=== PATIENT | female | born 1975 | race Caucasian/White ===

== ENCOUNTER 2017-05-11 10:53 | Emergency (ER) | payer BC ==
--- NOTE | 2017-05-11 13:28 | DIAGNOSTIC IMAGING REPORT ---
PROCEDURE: US VENOUS - BILATERAL EXT INDICATION: SWELLING, history of rhabdomyosarcoma TECHNIQUE: Duplex sonography of the deep venous system in both lower extremities was performed. Compression and augmentation techniques were used. COMPARISON: None. FINDINGS: Each interrogated segment of deep vein from the common femoral vein into the calf veins demonstrates normal compressibility, augmentation and/or color Doppler flow without filling defect. No soft-tissue mass or cyst. Moderate to significant bilateral lower extremity edema extending proximal to the mid thigh region. IMPRESSION: 1. No deep venous thrombosis in either lower extremity. 2. Moderate to severe bilateral lower extremity edema extending to the mid thigh region. This is consistent with cardiac failure/volume overload (elevated BNP at this visit).
--- NOTE | 2017-05-11 14:33 | DIAGNOSTIC IMAGING REPORT ---
PROCEDURE: XR CHEST 1 VIEW INDICATION: SHORTNESS OF BREATH TECHNIQUE: Single view chest. 1337 hours COMPARISON: 05/11/2015 FINDINGS: Right IJ Mediport in place. Very low lung volumes. The heart is obscured, but probably mildly enlarged. Central vasculature is indistinct. Bilateral alveolar opacities, left more diffuse than right. The right diaphragm is obscured there is probably right base atelectasis. Moderate to large right, and probable large left effusion. No pneumothorax. No acute fractures visible. IMPRESSION: 1. Findings of CHF and pulmonary edema. 2. Findings are accentuated by low lung volumes. 3. Right IJ Mediport.
--- NOTE | 2017-05-11 19:47 | DIAGNOSTIC IMAGING REPORT ---
PROCEDURE: CT THORAX ABD PELVIS W/CONT INDICATION: Left chest rhabdomyosarcoma. Evolving lower extremity ecchymosis. TECHNIQUE: 125 ml of Isovue 300 injected intravenously and axial images were obtained of the entire thorax, abdomen, pelvis, and lower extremities (to the level of the proximal legs) with sagittal and coronal reformations. COMPARISON: Comparison is made to chest x-ray and bilateral lower extremity venous study earlier today (05/11/1970). Comparison is also made to CT thorax from [facility] [place] on 05/12/2015. FINDINGS: THORAX: There is a large 14.5 x 8.5 x 7.5 cm mass of the left upper anterior chest wall which extends into the ventral mediastinum and is associated with destruction of the left anterior first rib and manubrium. There is a large right pleural effusion with moderate left pleural effusion. There are multiple metastatic lesions of the lungs (largest right 2.6 cm, largest left 1.5 cm). There is a mild cardiomegaly with pericardial effusion. In addition, there are a large filling defects in the atrium (right atrium 3.6 cm, left atrial 5.5 cm), with possible masses in the ventricles. There are multiple osseous metastatic lesions. clear. ABDOMEN: There is severe generalized anasarca. Moderate distention of the gallbladder with layering hyperdense material. There is heterogeneous appearance of the liver. Spleen (10.0 cm), pancreas, kidneys, and aorta are normal. There are multiple osseous metastatic lesions of the lumbar spine. PELVIS: There is severe generalized anasarca. Small amount of ascites. Multiple osseous metastatic lesions. RIGHT LOWER EXTREMITY: There is severe deep and superficial edema with fluid throughout the deep fascial planes and intramuscular effusions. LEFT LOWER EXTREMITY: There is severe deep and superficial edema with fluid throughout the deep fascial planes and intramuscular effusions. IMPRESSION: 1. There is a large 14.5 x 8.5 x 7.5 cm left upper chest wall mass extending into the mediastinum consistent with known primary neoplasm. 2. Large right and moderate left pleural effusions. 3. Multiple pulmonary metastatic nodules. 4. Mild cardiomegaly with pericardial effusion. 5. Large biatrial cardiac masses (right atrium 3.6 cm, left atrium 5.5 cm). In addition, findings suggest possible masses within the ventricles. 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 6. Distention of the gallbladder filled with biliary sludge. 7. Marked abnormal appearance of the liver consistent with intrinsic liver disease, passive congestion, although metastatic disease might also be considered. 8. Severe generalized anasarca with small amount of ascites. 9. Multiple osseous metastatic lesions of the thorax, abdomen, and pelvis. 10. Severe bilateral lower extremity deep and superficial edema with intramuscular effusions. 11. Findings discussed with Dr. Amado Plasencia. All CT scans at this facility use dose modulation, iterative reconstruction, and/or weight-based dosing when appropriate to reduce radiation dose to as low as reasonably achievable.
--- NOTE | 2017-05-11 23:37 | ED ORDER SUMMARY ---
..... Patient: NICOLA KELLER OrderSheet [facility] VisitID: [id number] [place] [address] 41y, F Registration Date/Time: 05/11/2017 ORDER SHEET Weight: 70.3 kg (stated) Allergies: Compazine GENERAL ORDERS: US Venous Bilat (Lower extremity) Urgent (11:32 05/11/2017 Melanie Reed) (Ack 11:41 OSnell) (12:43 KKnebel R.N.) CBC w Diff Urgent (11:32 05/11/2017 Melanie Reed) (Ack 11:41 OSnell) (12:03 KKnebel R.N.) CMP Urgent (11:05/11/2017 Melanie Reed) (Ack 11:41 OSnell) (12:03 KKnebel R.N.) UA-Culture if indicated Urgent (11:32 05/11/2017 Melanie Reed) (Ack 11:41 OSnell) (12:03 KKnebel R.N.) BNP Urgent (11:32 05/11/2017 Melanie Reed) (Ack 11:41 OSnell) (12:03 KKnebel R.N.) D-Dimer Urgent (11:32 05/11/2017 Melanie Reed) (Ack 11:41 OSnell) (12:03 KKnebel R.N.) Chest 1V Urgent (13:28 05/11/2017 Melanie Reed) (Ack 13:30 OSnell) (14:16 KKnebel R.N.) CT Lower Extremity With Contrast - Left Urgent (18:19 05/11/2017 Melanie Reed) (Ack 18:21 OSnell) (19:38 RFay) CT Thorax/Abd/Pelvis w Cont (No) (34/1.2) Urgent (18:24 05/11/2017 Melanie Reed) (Ack 18:29 OSnell) (19:38 RFay) CT Lower Extremity With Contrast - Right Urgent (18:27 05/11/2017 Melanie Reed) (Ack 18:29 OSnell) (19:38 RFay) Blood Culture (No) (N/A) Urgent (23:58 05/11/2017 Ariadna YANCEY) (Ack 0:09 AMcQuoid ER Tech1) (0:26 HSoule) MEDICATION ORDERS: - (Albumin 25 grams IV x 1 now) (13:20 05/11/2017 Melanie Reed) (14:05 KKnebel R.N.) IV FLUIDS: IV Saline Lock (11:32 05/11/2017 Melanie Reed) (12:03 KKnebel R.N.) Lasix IV 40 mg (Give 30 minutes after Albumin is infused.) (13:20 05/11/2017 Melanie Reed) (Ack 14:16 KKnebel R.N.) (15:35 KKnebel R.N.) Morphine IV 4 mg (HIGH ALERT MEDICATION, NOW) (13:20 05/11/2017 Melanie Reed) (13:25 DAYANAnelima R.N.) Morphine IV 4 mg (HIGH ALERT MEDICATION, NOW) (17:34 05/11/2017 Melanie Reed) (Cancelled: Physician Order17:48 Melanie Reed) Dilaudid IV 1 mg (HIGH ALERT MEDICATION, NOW) (17:47 05/11/2017 Melanie Reed) (18:20 KKnebel R.N.) Zofran IV 4 mg (NOW) (18:36 05/11/2017 Melanie Reed) (18:40 KWilliams R.N.) Vancomycin IV 1.5 gm/500 mL (NOW) (23:58 05/11/2017 Ariadna YANCEY) (Ack 0:01 HSoule) (0:24 HSoule) Dilaudid IV 1 mg (HIGH ALERT MEDICATION, NOW) (00:28 05/12/2017 Ariadna YANCEY) (0:32 HSoule) ORDER SHEET NOTES: [Electronically signed by Lurdes Arreola (00:43 05/12/2017)] [Electronically signed by Natan Johnson MD (22:23 05/14/2017)] [Electronically locked/signed by Lurdes Arreola (00:43 05/12/2017)]
--- NOTE | 2017-05-11 23:37 | ED ORDER SUMMARY ---
..... Patient: NICOLA KELLER OrderSheet [facility] VisitID: [id number] [place] [address] 41y, F Registration Date/Time: 05/11/2017 ORDER SHEET Weight: 70.3 kg (stated) Allergies: Compazine GENERAL ORDERS: US Venous Bilat (Lower extremity) Urgent (11:32 05/11/2017 Melanie Reed) (Ack 11:41 OSnell) (12:43 KKnebel R.N.) CBC w Diff Urgent (11:32 05/11/2017 Melanie Reed) (Ack 11:41 OSnell) (12:03 KKnebel R.N.) CMP Urgent (11:05/11/2017 Melanie Reed) (Ack 11:41 OSnell) (12:03 KKnebel R.N.) UA-Culture if indicated Urgent (11:32 05/11/2017 Melanie Reed) (Ack 11:41 OSnell) (12:03 KKnebel R.N.) BNP Urgent (11:32 05/11/2017 Melanie Reed) (Ack 11:41 OSnell) (12:03 KKnebel R.N.) D-Dimer Urgent (11:32 05/11/2017 Melanie Reed) (Ack 11:41 OSnell) (12:03 KKnebel R.N.) Chest 1V Urgent (13:28 05/11/2017 Melanie Reed) (Ack 13:30 OSnell) (14:16 KKnebel R.N.) CT Lower Extremity With Contrast - Left Urgent (18:19 05/11/2017 Melanie Reed) (Ack 18:21 OSnell) (19:38 RFay) CT Thorax/Abd/Pelvis w Cont (No) (34/1.2) Urgent (18:24 05/11/2017 Melanie Reed) (Ack 18:29 OSnell) (19:38 RFay) CT Lower Extremity With Contrast - Right Urgent (18:27 05/11/2017 Melanie Reed) (Ack 18:29 OSnell) (19:38 RFay) Blood Culture (No) (N/A) Urgent (23:58 05/11/2017 Ariadna YANCEY) (Ack 0:09 AMcQuoid ER Tech1) (0:26 HSoule) MEDICATION ORDERS: - (Albumin 25 grams IV x 1 now) (13:20 05/11/2017 Melanie Reed) (14:05 KKnebel R.N.) IV FLUIDS: IV Saline Lock (11:32 05/11/2017 Melanie Reed) (12:03 KKnebel R.N.) Lasix IV 40 mg (Give 30 minutes after Albumin is infused.) (13:20 05/11/2017 Melanie Reed) (Ack 14:16 KKnebel R.N.) (15:35 KKnebel R.N.) Morphine IV 4 mg (HIGH ALERT MEDICATION, NOW) (13:20 05/11/2017 Melanie Reed) (13:25 DAYANAnelima R.N.) Morphine IV 4 mg (HIGH ALERT MEDICATION, NOW) (17:34 05/11/2017 Melanie Reed) (Cancelled: Physician Order17:48 Melanie Reed) Dilaudid IV 1 mg (HIGH ALERT MEDICATION, NOW) (17:47 05/11/2017 Melanie Reed) (18:20 KKnebel R.N.) Zofran IV 4 mg (NOW) (18:36 05/11/2017 Melanie Reed) (18:40 KWilliams R.N.) Vancomycin IV 1.5 gm/500 mL (NOW) (23:58 05/11/2017 Ariadna YANCEY) (Ack 0:01 HSoule) (0:24 HSoule) Dilaudid IV 1 mg (HIGH ALERT MEDICATION, NOW) (00:28 05/12/2017 Ariadna YANCEY) (0:32 HSoule) ORDER SHEET NOTES: [Electronically signed by Lurdes Arreola (00:43 05/12/2017)] [Electronically signed by Natan Johnson MD (22:23 05/14/2017)] [Electronically locked/signed by Lurdes Arreola (00:43 05/12/2017)]
--- NOTE | 2017-05-11 23:37 | ED NURSING NOTES ---
Clinical Report - Nurses [facility] [address] [place] [address] 05/11/2017 10:54 Patient: NICOLA KELLER TRIAGE Triage time 11:May 11 2017. Acuity: LEVEL 3. Chief Complaint: LEFT LOWER EXTREMITY PAIN, SWELLING and REDNESS. Alert. No acute distress. (pain). GILBERTO COMA SCORE: Gilberto Coma Scale: 15- eyes open spontaneously (4); best verbal response- oriented x 4 (5); best motor response- obeys commands (6). --11:13 Nayeli Sandoval R.N. 11:04 05/11/17. BP: 95/67. HR: 103. RR: 20. O2 saturation: 100%. Temp: 97.9 F (axillary). Pain level now: 08/05. --11:13 Nayeli Sandoval R.N. Weight: 70.3 kg stated. Height/Length: 64 inches Per Patient. BMI: 26.6. --11:03 Nayeli Sandoval R.N. Medications Levothyroxine Sodium Oral 224 mcg, daily. --11:06 Nayeli Sandoval R.N. Morphine Sulfate ER Beads Oral (Capsule Extended Release 24 Hour 45 mg) 20mg , prn. --11:06 Nayeli Sandoval R.N. OxyCODONE HCl Oral 15mg, 4x a day. --11:07 Nayeli Sandoval R.N. Lovenox Subcutaneous (Solution 80 mg/0.8mL), daily. --11:07 Nayeli Sandoval R.N. Allergies Compazine. --11:07 Nayeli Sandoval R.N. History Arrived by private vehicle. Historian: patient. Accompanied by family. No injury occurred. This occurred today. ( pt states that she had a blod clot that "popped" this morning). She has had swelling, redness and trouble walking. Treatment ASSOCIATE MERCHANT: None. PAST MEDICAL HX: Tetanus status: up-to-date. Immunizations: up-to-date. Last normal menstrual period now. SOCIAL HX: Never smoker. Occasional alcohol use. No drug use. No infectious disease exposure. SELF HARM ASSESSMENT: A self harm assessment was performed. The patient answered "no" to the question "Do you have thoughts of harming or killing yourself?" and "Have you recently had thoughts about harming or killing others?". NUTRITIONAL RISK ASSESSMENT: The nutritional risk assessment revealed no deficiencies. FUNCTIONAL ASSESSMENT: Functional assessment: no impairments noted. LEARNING NEEDS ASSESSMENT: The learning needs assessment revealed no barriers. ABUSE ASSESSMENT: Abuse assessment: The patient was asked "Do you feel safe in your home?". FALL RISK ASSESSMENT: Fall risk assessment completed. Risk factors identified include severe pain and patient impairment of mobility. Fall interventions initiated. Patient placed on stretcher. Side rails up x2. Brakes on Bed in low position. Patient identified as a fall risk. Family at bedside. Call light in reach of patient. Instructed not to get up without assistance. SKIN INTEGRITY ASSESSMENT: Skin integrity risk assessment completed. No skin integrity risk identified. --11:13 Nayeli Sandoval R.N. PROBLEMS: Thyroid Disease. Rhabdomyocarcoma. --11:09 Nayeli Sandoval R.N. ADDITIONAL SURGERIES: Appendectomy. . Thyroid Surgery. --11:09 Nayeli Sandoval R.N. Interventions ID band on patient. To room. --11:13 Nayeli Sandoval R.N. PHYSICAL ASSESSMENT To room via wheelchair. GENERAL / NEURO / PSYCH: Oriented X 4. Appears in pain. CVS: Capillary refill is greater than 2 seconds. EXTREMITIES: Bilateral 4+ pitting edema of the lower extremities involving both feet, both ankles and both lower legs. Left thigh: tenderness, swelling, erythema and ecchymosis. SKIN: Skin intact. Skin is cool. --11:15 Nayeli Sandoval R.N. NURSING PROGRESS NOTES Patient gowned. Patient identifiers checked. Call light placed in reach. Side rails up x 2. Bed placed in lowest position. Brakes of bed on. --11:15 Nayeli Sandoval R.N. 11:45 05/11/2017 Site #1 started via IV in the right antecubital space with an 20g angiocath, with aseptic technique and good blood return; one attempt. Blood drawn: rainbow set. Labeled in the presence of the patient and sent to the lab. Saline lock flushed with 10 mL saline. --12:01 Nayeli Sandoval R.N. Patient ID band checked for patient name and birthdate. Instructions provided to collect clean catch urine and patient verbalized understanding. Clean catch urine collected with return of red-colored clear urine; sample sent to lab for urinalysis and culture. Specimen labeled in the presence of the patient. --12:02 Nayeli Sandoval R.N. ( warm blankets provided to patient. at bedside). --12:02 Nayeli Sandoval R.N. 12:20 05/11/17. ( US here in room for patient). --12:30 Nayeli Sandoval R.N. ( US completed.). --12:43 Nayeli Sandoval R.N. 13:02 05/11/17. BP: 92/69. HR: 103. RR: 16. O2 saturation: 100%. Pain level now: 08/05. --13:03 Nayeli Sandoval R.N. The patient is calm and resting quietly. Overall patient status is the same- she states feels the same. ( family at bedside). GENERAL / NEURO / PSYCH: Alert. RESPIRATORY: No respiratory distress. SKIN: Skin is warm and dry. --13:03 Nayeli Sandoval R.N. 13:25 05/11/2017 Morphine IVP 4 mg given over 2 minute(s) via site #1. Allergies verified, confirmed 5 rights and sedative warning given to the patient. IV patency established. IV site checked: no pain, redness, or swelling. IV flushed thoroughly pre- and post-medication administration. --13:25 Nayeli Sandoval R.N. 13:55 05/11/2017 Albumin * IV 25 Grams IV over 60 min on pump --14:05 Nayeli Sandoval R.N. 14:36 05/11/17. BP: 89/64. HR: 61. RR: 16. O2 saturation: 94%. Pain level now: 08/05. --14:37 Nayeli Sandoval R.N. The patient is calm and resting quietly. Overall patient status is the same- she states feels the same. GENERAL / NEURO / PSYCH: The patient reports pain that is located in the left thigh is still present and currently severe. RESPIRATORY: No respiratory distress. --14:37 Nayeli Sandoval R.N. 15:16 05/11/2017 Albumin IV Discontinued: bag #1 infused. Total amount infused: 100 mL. IV patency established. IV site checked: no pain, redness, or swelling. IV flushed thoroughly. --15:16 Nayeli Sandoval R.N. 15:35 05/11/2017 Lasix IVP 40 mg given over 2 minute(s) via site #1. Allergies verified and confirmed 5 rights. IV patency established. IV site checked: no pain, redness, or swelling. IV flushed thoroughly pre- and post-medication administration. IVP given by RN. --15:35 Nayeli Sandoval R.N. <<STRICKEN ENTRY-- Urine collected with return of clear urine. (patent up to bedside commode). Urine not red. --17:23 Nayeli Sandoval R.N. --END STRIKE>> Correction --17:24 Nayeli Sandoval R.N. ( pt up to bedside commode with 2 person assist.). --17:24 Nayeli Sandoval R.N. 18:10 05/11/2017 Dilaudid (HYDROmorphone HCl PF) IVP 1 mg given over 2 minute(s) via site #1. Allergies verified, confirmed 5 rights and sedative warning given to the patient. IV patency established. IV site checked: no pain, redness, or swelling. IV flushed thoroughly pre- and post-medication administration. IVP given by RN. --18:20 Nayeli Sandoval R.N. 18:39 05/11/2017 Zofran (Ondansetron HCl) IVP 4 mg given over 2 minute(s) via site #1. Allergies verified and confirmed 5 rights. IV patency established. IV site checked: no pain, redness, or swelling. IV flushed thoroughly pre- and post-medication administration. IVP given by RN. --18:40 Sandy Donald R.N. Patient transported to CT by stretcher with tech. --18:41 Sandy Donald R.N. 19:18 05/11/17. BP: 83/57. O2 saturation: 97%. Additional comments: pt states that she is normally really low notified Dr. Plasencia. --19:19 Nayeli Sandoval R.N. 16:00 05/11/17. BP: 83/45. Additional comments: MD aware of LBP. --19:20 Nayeli Sandoval R.N. 20:41 05/11/17. BP: 85/59. HR: 105. RR: 16. O2 saturation: 98%. Pain level now: 08/05. --20:42 Nayeli Sandoval R.N. The patient is calm and resting quietly. Overall patient status is the same- she states feels the same. GENERAL / NEURO / PSYCH: The patient reports pain that is located in the left thigh. Alert. Oriented X 4. CVS: Capillary refill less than 2 seconds. SKIN: Skin is warm and dry. --20:42 Nayeli Sandoval R.N. 22:27 05/11/17. BP: 74/48. HR: 108. RR: 16. O2 saturation: 98%. Pain level now: 04/05. --22:31 Nayeli Sandoval R.N. The patient is calm and resting quietly. Overall patient status is the same- she states feels the same. GENERAL / NEURO / PSYCH: Alert. Oriented X 4. SKIN: Skin is warm and dry. --22:31 Nayeli Sandoval R.N. 22:55 05/11/17. ED physician notified about patient's status. --23:09 Nayeli Sandoval R.N. Care transferred and report received (Sandrita Delgado RN). --00:06 Lurdes Arreola 00:24 05/12/2017 Started 1.5 gm of Vancomycin IVPB in bag #1 500 mL; at 352 mL/hr over 1.5 hour(s) via site #1 via IV pump. Allergies verified and confirmed 5 rights. IV patency established. IV site checked: no pain, redness, or swelling. IV flushed thoroughly pre- and post-medication administration (Antibiotics started after second set of blood cultures drawn). --00:24 Lurdes Arreola ( Provider notified of vitals). --00:26 Lurdes Arreola 00:32 05/12/2017 Dilaudid (HYDROmorphone HCl PF) IVP 1 mg given over 1 minute(s) via site #1. Allergies verified, confirmed 5 rights and sedative warning given to the patient. IV patency established. IV site checked: no pain, redness, or swelling. IV flushed thoroughly pre- and post-medication administration. IVP given by RN. --00:32 Lurdes Arreola 00:32 05/12/2017 Vancomycin IVPB Continued: upon transfer at the rate of 352 mL/hr. 480 mL remaining bag #1. IV patency established. IV site checked: no pain, redness, or swelling. IV flushed thoroughly. --00:32 Lurdes Arreola. DISPOSITION / DISCHARGE Report was given to a nurse via a phone call. Report included patient's care, treatment, medications, reviewed medication reconcilliation, and condition (including any recent changes or anticipated changes). All questions were answered. Report was acknowledged. (Ernestina VASQUEZ). --00:10 Nayeli Sandoval R.N. 00:25 05/12/17. BP: 78/52. HR: 100. RR: 20. O2 saturation: 98% on room air. Pain level now: 06/05. --00:25 Lurdes Arreola Transferred to [facility]. Summary of care provided to transport team and transfer facility via paper. Transported via stretcher by nurse and EMS with monitor, IV and O2. Bed obtained. --00:33 Lurdes Arreola Report was given at the bedside. Report included patient's care, treatment, medications, reviewed medication reconcilliation, and condition (including any recent changes or anticipated changes). All questions were answered. Report was acknowledged and care was transferred. (Adan VASQUEZ). --00:39 Lurdes Arreola 00:42 05/12/17. BP: 78/54. HR: 90. RR: 20. O2 saturation: 99% on room air. Temp: 97.9 F (oral). Pain level now: 03/05. --00:43 Lurdes Arreola Departure time: 00:43 May 12 2017. --00:43 Lurdes Arreola 00:38 05/12/2017 Site #[address] upon transfer; flushes easily. --00:43 Lurdes Arreola. Locked/Released at 05/12/2017 0:43 by Lurdes Arreola,
--- NOTE | 2017-05-11 23:37 | ED CLINICAL REPORT ---
Clinical Report - Physicians/Mid Levels [facility] [address] [place] [address] 05/11/2017 10:54 Patient: NICOLA KELLER Time Seen: 10:57; initial patient contact. Arrived- By private vehicle. Historian- patient. HISTORY OF PRESENT ILLNESS Chief Complaint: Injury to left leg. The injury happened just prior to arrival. Injury secondary to other mechansim (unknown). Occurred at home. ( Pain w/ redness and ecchymosis to L medial thigh this AM. No trauma.). Patient is experiencing moderate pain. Patient denies injury to the head or neck. REVIEW OF SYSTEMS The patient has had swelling. No tingling, weakness, numbness, chills or fever. No calf pain, chest pain, cough, difficulty breathing or palpitations. She has had pedal edema but no pain on weight bearing. All systems otherwise negative, except as recorded above. PAST HISTORY ( Thyroid Disease. Rhabdomyocarcoma. DVT ADDITIONAL SURGERIES: Appendectomy. . Thyroid Surgery). Medications: Lovenox Subcutaneous (Solution 80 mg/0.8mL), daily. OxyCODONE HCl Oral 15mg, 4x a day. Morphine Sulfate ER Beads Oral (Capsule Extended Release 24 Hour 45 mg) 20mg , prn. Levothyroxine Sodium Oral 224 mcg, daily. Allergies: Compazine. SOCIAL HISTORY Never smoker. Occasional alcohol use. No drug use. ADDITIONAL NOTES The nursing notes have been reviewed. PHYSICAL EXAM Vital Signs: 05/11/2017 11:04 BP: 95/67. HR: 103. RR: 20. O2 saturation: 100%. Temp: 97.9 F. Pain level now: 10. Have been reviewed. Blood pressure normal. Tachycardic. Respiratory rate normal. Temperature normal. Oxygen saturation normal. Appearance: Alert. Oriented X3. No acute distress. Head: Head atraumatic. Eyes: Pupils equal, round and reactive to light. ENT: Dry mucous membranes present. No pharyngeal erythema. Neck: Neck supple. CVS: Normal heart rate and rhythm. Heart sounds normal. Respiratory: No respiratory distress. Moderately decreased air movement over the lower third of both lung knight. Abdomen: No visible injury. Soft and nontender. Bowel sounds normal. No organomegaly. No mass. Skin: Skin warm and dry. (sacral decubitus ulcers - please refer to photographs). Extremities: No signs of infection involving the lower extremities. Left thigh: mild erythema, moderate tenderness and small ecchymosis located in the medial aspect of mid thigh. Neurovascular intact distally. (+2 LE edema bilaterally to knees. Pitting). Extremities otherwise negative. Neuro, Vascular and Tendons: Vascular status intact. Sensation intact. Motor intact. Tendon function intact. Gait: Limping gait. Neuro: Oriented X 3. No motor deficit. LABS, X-RAYS, AND EKG Lower Extremity Sonography: Negative exam. No compression abnormality noted. The exam was performed by a facility environmental technician. The study was interpreted by the radiologist and discussed with the radiologist. Prior studies were not available for comparison. Laboratory Tests: UA-Culture if indicated: (DERIC: 05/11/2017 11:55) ( [facility] 05/11/2017 12:44) Final results Test Result Flag Units (Reference) URINE COLOR YELLOW URINE APPEARANCE CLEAR URINE GLUCOSE NEGATIVE (NEGATIVE) URINE BILIRUBIN NEGATIVE (NEGATIVE) URINE KETONE NEGATIVE (NEGATIVE) URINE SPECIFIC GRAVITY 1.010 (1.010-1.030) URINE PH 5.0 (5.0-8.0) URINE PROTEIN 2+ (NEGATIVE) URINE UROBILINOGEN 1.0 EU/dL (0.2-1.0) URINE NITRITE NEGATIVE (NEGATIVE) URINE BLOOD 3+ (NEGATIVE) URINE LEUK ESTERASE TRACE (NEGATIVE) URINE RBC >100 rbc/hpf (0-1) URINE WBC 1-3 wbc/hpf (0-1) URINE EPITHELIAL CELLS 1-3 EPI/hpf (0-5) URINE BACTERIA TRACE (<1+) (NONE SEEN) URINE COMMENT CULTURE INDICATED URINE CULTURES ARE SET-UP BASED ON THE FOLLOWING CRITERIA:POSITIVE NITRITEPOSITIVE LEUKOCYTE ESTERASEGREATER THAN 10 WHITE BLOOD CELLSMODERATE (2+) OR GREATER BACTERIA CBC w Diff: (DERIC: 05/11/2017 11:45) ( [facility] 05/11/2017 13:53) Final results Test Result Flag Units (Reference) WHITE BLOOD COUNT 9.4 K/uL (4.5-11.5) RED BLOOD COUNT 4.12 M/uL (4.00-5.20) HEMOGLOBIN 12.8 gm/dL (12.0-16.0) HEMATOCRIT 38.8 % (36.0-46.0) MEAN CELL VOLUME 94 fL (80-100) MEAN CORPUSCULAR HGB 31 pg (26-34) MEAN CORPUSCULAR HGB CONC 33 g/dL (31-37) RED CELL DISTRIBUTION WIDTH 22.3 H % (11.6-14.8) PLATELET COUNT 104 L K/uL (150-400) POLY % 81 H % (50-75) BAND % 8 % (0-8) LYMPH 4 L % (25-40) MONO 5 % (3-14) EOSINOPHIL % 1 % (0-4) BASOPHIL % 1 % (0-2) METAMYELOCYTE % 0 % (0-1) MYELOCYTE 0 % (0-1) OTHER CELL TYPE 0 RBC MORPHOLOGY PLTS DEC ANISOCYTOSIS 3+ SCHISTOCYTES 1+ [id number]: (DERIC: 05/11/2017 11:45) ( MsgRcvd 05/11/2017 12:09) Final results Test Result Flag Units (Reference) D-DIMER QUANTITATIVE 0.86 H ug/mLFEU (0.27-0.52) The primary value of this quantitative assay relates toits negative predictive value (i.e. exclusion) of pulmonaryembolism/deep vein thrombosis/DIC.Elevated levels of d-dimer may also occur with:, age, cancer, inflammation, liver disease,post-op, infection, hematoma, coronary disease, peripheralarteriopathy, bleeding disorders and thrombolytic treatment.Results should be correlated with other clinical andradiological data.Testing Methodology: Latex Immunoassay BNP: (DERIC: 05/11/2017 11:45) ( MsgRcvd 05/11/2017 12:30) Final results Test Result Flag Units (Reference) B-TYPE NATRIURETIC PEPTIDE 1710 H pg/ml (5-100) CMP: (DERIC: 05/11/2017 11:45) ( MsgRcvd 05/11/2017 12:17) Final results Test Result Flag Units (Reference) GLUCOSE 89 mg/dL (70-110) BUN 34 H mg/dL (7-18) CREATININE 1.2 mg/dL (0.6-1.3) Estimated GFR 52.62 mL/min Estimated GFR- >60 mL/min Note: Persistent reduction over 3 months in eGFR<60 mL/min/1.73 m2 defines CKD. Patients with eGFR values>=60 mL/min/1.73 m2 may also have CKD if evidence ofpersistent proteinuria. Additional information may be foundat [email or web address].org. SODIUM 129 L mmol/L (136-145) POTASSIUM 4.9 mmol/L (3.5-5.1) CHLORIDE 98 mmol/L (98-107) CARBON DIOXIDE 21 mmol/L (21-32) CALCIUM 8.1 L mg/dL (8.5-10.1) TOTAL PROTEIN 6.0 L g/dL (6.4-8.2) ALBUMIN 2.6 L g/dL (3.3-5.0) BILIRUBIN, TOTAL 3.2 H mg/dL (0.0-1.0) ALKALINE PHOSPHATASE 113 U/L (46-116) AST (SGOT) 87 H U/L (15-37) ALT (SGPT) 90 H U/L (12-78) . Note - Tests: (CT Chest/Abd/Pel/LE's: 1. There is a large 14.5 x 8.5 x 7.5 cm left upper chest wall mass extending into the mediastinum consistent with known primary neoplasm. 2. Large right and moderate left pleural effusions. 3. Multiple pulmonary metastatic nodules. 4. Mild cardiomegaly with pericardial effusion. 5. Large biatrial cardiac masses (right atrium 3.6 cm, left atrium 5.5 cm). In addition, findings suggest possible masses within the ventricles. 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 6. Distention of the gallbladder filled with biliary sludge. 7. Marked abnormal appearance of the liver consistent with intrinsic liver disease, passive congestion, although metastatic disease might also be considered. 8. Severe generalized anasarca with small amount of ascites. 9. Multiple osseous metastatic lesions of the thorax, abdomen, and pelvis. 10. Severe bilateral lower extremity deep and superficial edema with intramuscular effusions.). PROGRESS AND PROCEDURES Discussed case with hospitalist, (Dr. Aleman, does not feel she needs to be admitted, needs to be on a daily dose of Lasix.). Discussed case with hospitalist, (Charlie at [place]). Reviewed test results and need for additional work-up. Agreed upon treatment plan, need for patient follow-up and decision to admit. Health care provider will see patient in hospital. Consult obtained. Dr. Jin Hunter/[facility], declines to accept pt. Patient/family counseled. Old medical records reviewed. Disposition: Transferred. CLINICAL IMPRESSION Medium-sized right and left pleural effusion associated with acute congestive heart failure and malignancy. (Rhabdomyosarcoma with metastasis). rhabdomyosarcoma decubitus ulcers L lower extremity ecchymosis swelling and tenderness. (Electronically signed by Natan Johnson MD 05/14/2017 22:23) Addenda for KRISHNA NICOLA R VisitID: [id number] Date: 05/11/2017 05/12/2017 16:12 Gram positive cocci in both aerobic and anaerobic bottles. Donaldo NUÑEZ notified. Pts nurse CHRISTINA De Guzman at [facility] notified. (Electronically signed by Sandy Donald R.N. - 05/12/2017 16:12)
--- NOTE | 2017-05-14 22:23 | ED MAR SUMMARY ---
..... Medication Administration Record [facility] [address] [place] [address] Patient: NICOLA KELLER Visit ID: [id number] 41y, F Weight: 70.3 kg Height/Length: 64 in BMI: 26.6 ALLERGIES: Compazine Given 13:25 05/11/2017 Nayeli Sandoval R.N. Medication Administered: MORPHINE [IVP], Dose: 4 mg IVP over 2 minute(s), Site: #1 right AC. Medication Ordered: Morphine IV 4 mg (HIGH ALERT MEDICATION, NOW). Start 13:55 05/11/2017 Nayeli Sandoval R.N., Stop 15:16 05/11/2017 Nayeli Sandoval R.N. Medication Administered: Albumin *, Dose: 25 Grams * IV. Medication Ordered: - (Albumin 25 grams IV x 1 now). Given 15:35 05/11/2017 Nayeli Sandoval R.N. Medication Administered: LASIX [IVP], Dose: 40 mg IVP over 2 minute(s), Site: #1 right AC. Medication Ordered: Lasix IV 40 mg (Give 30 minutes after Albumin is infused.). Given 18:10 05/11/2017 Nayeli Sandoval R.N. Medication Administered: DILAUDID [IVP] (HYDROMORPHONE HCL PF), Dose: 1 mg IVP over 2 minute(s), Site: #1 right AC. Medication Ordered: Dilaudid IV 1 mg (HIGH ALERT MEDICATION, NOW). Given 18:39 05/11/2017 Sandy Donald R.N. Medication Administered: ZOFRAN [IVP] (ONDANSETRON HCL), Dose: 4 mg IVP over 2 minute(s), Site: #1 right AC. Medication Ordered: Zofran IV 4 mg (NOW). Start 00:24 05/12/2017 Lurdes Arreola,, Continued Upon Transfer 00:32 05/12/2017 Lurdes Arreola, Medication Administered: VANCOMYCIN [IVPB], Dose: 1.5 gm IVPB over 1.5 hour(s), Rate: 352 mL/hr, Dispensed: 500 mL bag, Site: #1 right AC. Medication Ordered: Vancomycin IV 1.5 gm/500 mL (NOW). Given 00:32 05/12/2017 Lurdes Arreola, Medication Administered: DILAUDID [IVP] (HYDROMORPHONE HCL PF), Dose: 1 mg IVP over 1 minute(s), Site: #1 right AC. Medication Ordered: Dilaudid IV 1 mg (HIGH ALERT MEDICATION, NOW).
--- NOTE | 2017-05-14 22:23 | ED MED RECONCILIATION SUMMARY ---
Patient: NICOLA KELLER Medication Reconciliation Report [facility] VisitID: [id number] [address] [place] [address] 41y, F Registration Date/Time: 05/11/2017 Weight: 70.3 kg Height/Length: 64 in. BMI: 26.6 ALLERGIES: Compazine The patient's Home Medications are listed below: THE FOLLOWING MEDICATIONS NEED TO BE RECONCILED: Levothyroxine Sodium Oral 224 mcg, daily Lovenox Subcutaneous (80 mg/0.8mL), daily Morphine Sulfate ER Beads Oral (45 mg) 20mg , prn OxyCODONE HCl Oral 15mg, 4x a day The source(s) of the original Home Medication information: Not obtained. The following Medications were given to the patient in the Emergency Department: Morphine [IVP] IVP 4 mg, administered: 05/11/2017 1:25:00 PM Albumin IV bolus 0, then 25 Grams, administered: 05/11/2017 1:55:00 PM Lasix [IVP] IVP 40 mg, administered: 05/11/2017 3:35:00 PM Dilaudid [IVP] IVP 1 mg, administered: 05/11/2017 6:10:00 PM Zofran [IVP] IVP 4 mg, administered: 05/11/2017 6:39:00 PM Vancomycin [IVPB] IVPB bolus 0, then 1.5 gm 352 mL/hr, administered: 05/12/2017 12:24:00 AM Dilaudid [IVP] IVP 1 mg, administered: 05/12/2017 12:32:00 AM The following Medications were prescribed to the patient: None.
--- NOTE | 2017-05-14 22:23 | ED DISCHARGE INSTRUCTIONS ---
Patient: NICOLA KELLER General Instructions [facility] VisitID: [id number] [address] [place] [address] 41y, F Registration Date/Time: 05/11/2017 Medium-sized right and left pleural effusion associated with acute congestive heart failure and malignancy. (Rhabdomyosarcoma with metastasis). rhabdomyosarcoma decubitus ulcers L lower extremity ecchymosis swelling and tenderness. (Electronically signed by Natan Johnson MD 05/14/2017 22:23)
--- NOTE | 2017-05-14 22:23 | ED DISCHARGE INSTRUCTIONS ---
Patient: NICOLA KELLER General Instructions [facility] VisitID: [id number] [address] [place] [address] 41y, F Registration Date/Time: 05/11/2017 Medium-sized right and left pleural effusion associated with acute congestive heart failure and malignancy. (Rhabdomyosarcoma with metastasis). rhabdomyosarcoma decubitus ulcers L lower extremity ecchymosis swelling and tenderness. (Electronically signed by Natan Johnson MD 05/14/2017 22:23)
--- NOTE | 2017-05-14 22:23 | ED MAR SUMMARY ---
..... Medication Administration Record [facility] [address] [place] [address] Patient: NICOLA KELLER Visit ID: [id number] 41y, F Weight: 70.3 kg Height/Length: 64 in BMI: 26.6 ALLERGIES: Compazine Given 13:25 05/11/2017 Nayeli Sandoval R.N. Medication Administered: MORPHINE [IVP], Dose: 4 mg IVP over 2 minute(s), Site: #1 right AC. Medication Ordered: Morphine IV 4 mg (HIGH ALERT MEDICATION, NOW). Start 13:55 05/11/2017 Nayeli Sandoval R.N., Stop 15:16 05/11/2017 Nayeli Sandoval R.N. Medication Administered: Albumin *, Dose: 25 Grams * IV. Medication Ordered: - (Albumin 25 grams IV x 1 now). Given 15:35 05/11/2017 Nayeli Sandoval R.N. Medication Administered: LASIX [IVP], Dose: 40 mg IVP over 2 minute(s), Site: #1 right AC. Medication Ordered: Lasix IV 40 mg (Give 30 minutes after Albumin is infused.). Given 18:10 05/11/2017 Nayeli Sandoval R.N. Medication Administered: DILAUDID [IVP] (HYDROMORPHONE HCL PF), Dose: 1 mg IVP over 2 minute(s), Site: #1 right AC. Medication Ordered: Dilaudid IV 1 mg (HIGH ALERT MEDICATION, NOW). Given 18:39 05/11/2017 Sandy Donald R.N. Medication Administered: ZOFRAN [IVP] (ONDANSETRON HCL), Dose: 4 mg IVP over 2 minute(s), Site: #1 right AC. Medication Ordered: Zofran IV 4 mg (NOW). Start 00:24 05/12/2017 Lurdes Arreola,, Continued Upon Transfer 00:32 05/12/2017 Lurdes Arreola, Medication Administered: VANCOMYCIN [IVPB], Dose: 1.5 gm IVPB over 1.5 hour(s), Rate: 352 mL/hr, Dispensed: 500 mL bag, Site: #1 right AC. Medication Ordered: Vancomycin IV 1.5 gm/500 mL (NOW). Given 00:32 05/12/2017 Lurdes Arreola, Medication Administered: DILAUDID [IVP] (HYDROMORPHONE HCL PF), Dose: 1 mg IVP over 1 minute(s), Site: #1 right AC. Medication Ordered: Dilaudid IV 1 mg (HIGH ALERT MEDICATION, NOW).
--- NOTE | 2017-05-14 22:23 | ED MED RECONCILIATION SUMMARY ---
Patient: NICOLA KELLER Medication Reconciliation Report [facility] VisitID: [id number] [address] [place] [address] 41y, F Registration Date/Time: 05/11/2017 Weight: 70.3 kg Height/Length: 64 in. BMI: 26.6 ALLERGIES: Compazine The patient's Home Medications are listed below: THE FOLLOWING MEDICATIONS NEED TO BE RECONCILED: Levothyroxine Sodium Oral 224 mcg, daily Lovenox Subcutaneous (80 mg/0.8mL), daily Morphine Sulfate ER Beads Oral (45 mg) 20mg , prn OxyCODONE HCl Oral 15mg, 4x a day The source(s) of the original Home Medication information: Not obtained. The following Medications were given to the patient in the Emergency Department: Morphine [IVP] IVP 4 mg, administered: 05/11/2017 1:25:00 PM Albumin IV bolus 0, then 25 Grams, administered: 05/11/2017 1:55:00 PM Lasix [IVP] IVP 40 mg, administered: 05/11/2017 3:35:00 PM Dilaudid [IVP] IVP 1 mg, administered: 05/11/2017 6:10:00 PM Zofran [IVP] IVP 4 mg, administered: 05/11/2017 6:39:00 PM Vancomycin [IVPB] IVPB bolus 0, then 1.5 gm 352 mL/hr, administered: 05/12/2017 12:24:00 AM Dilaudid [IVP] IVP 1 mg, administered: 05/12/2017 12:32:00 AM The following Medications were prescribed to the patient: None.
== END 2017-05-12 00:43 | disposition short-term general hospital (02) ==
LOC: ED SRH 10:53
DX: C76.1 Malignant neoplasm of thorax (principal); C78.00 Secondary malignant neoplasm of unspecified lung; J91.0 Malignant pleural effusion; I50.9 Heart failure, unspecified; L89.159 Pressure ulcer of sacral region, unspecified stage; R22.42 Localized swelling, mass and lump, left lower limb; R18.8 Other ascites